=== PATIENT | male | born 1935 | race Caucasian/White ===

== ENCOUNTER 2022-05-01 10:25 | Outpatient (CLI) | payer MEDICARE | END 2022-05-01 10:26 | disposition home or self-care (01) | LOC: BICCT 10:25 | PROVIDERS: ATTEND Internal Medicine Pulmonary Disease | DX: J44.9 Chronic obstructive pulmonary disease, unspecified (principal); J92.9 Pleural plaque without asbestos; J98.4 Other disorders of lung; I34.81 Nonrheumatic mitral (valve) annulus calcification; K44.9 Diaphragmatic hernia without obstruction or gangrene; K80.20 Calculus of gallbladder without cholecystitis without obstruction; I51.7 Cardiomegaly | CPT/HCPCS: 71250 ==

== ENCOUNTER 2022-08-15 09:16 | Outpatient (CLI) | payer MEDICARE | END 2022-08-15 09:17 | disposition home or self-care (01) | LOC: RAD 09:16 | PROVIDERS: ATTEND Internal Medicine Critical Care Medicine | DX: R06.00 Dyspnea, unspecified (principal); R91.8 Other nonspecific abnormal finding of lung field | CPT/HCPCS: 71046 ==

== ENCOUNTER 2022-09-26 10:02 | Outpatient (CLI) | payer MEDICARE ==
[2022-09-26 11:12] LABS: #Eosinphils 0.3 10x3/uL (0.0-0.5); #Monocytes 0.6 10x3/uL (0.0-1.1); #Neutrophils 4.2 10x3/uL (1.5-8.4); %Basophils 0.6 % (0.0-2.0); %Eosinophils 4.5 % (0.0-6.0); %Lymphocytes 27.4 % (18.0-47.0); %Monocytes 8.7 % (0.0-10.0); %Neutrophils 58.5 % (40.0-75.0); Hemoglobin 13.7 g/dL (13.5-17.5); Mean Corpuscular HGB CONC 32.9 g/dL (32.0-36.0); Mean Corpuscular Hemoglobin 32.2 pg (27.0-33.0); Mean Corpuscular Volume 97.9 fl (81.2-95.1); Mean Platelet Volume 10.1 fl (7.4-10.4); Platelet Count 165 10x3/uL (150-450); RBC Distribution Width 12.4 % (11.5-14.5); Red Blood Cell (RBC) Count 4.25 10x6/uL (4.32-5.72); White Blood Cell (WBC) Count 7.2 10x3/uL (3.5-10.5)
[2022-09-26 11:22] LABS: Prothrombin Time 10.9 sec (9.5-12.1)
[2022-09-26 11:35] LABS: Anion Gap 14 mmol/L (10-20); BUN (Urea Nitrogen) 34 mg/dL (8.4-25.7); Calc. Creatinine Clearance 0 mL/min (70-130); Calcium 9.6 mg/dL (7.8-10.44); Carbon Dioxide 28 mmol/L (23-31); Chloride 103 mmol/L (98-107); Estimated GFR 54; Glucose 259 mg/dL (83-110); Potassium 5.2 mmol/L (3.5-5.1); Sodium 140 mmol/L (136-145)
== END 2022-09-26 10:03 | disposition home or self-care (01) ==
LOC: LABBT 10:02
PROVIDERS: ATTEND Orthopaedic Surgery
DX: Z01.812 Encounter for preprocedural laboratory examination (principal); M17.11 Unilateral primary osteoarthritis, right knee
CPT/HCPCS: 80048; 85025; 85610; 87081

== ENCOUNTER 2023-01-01 07:51 | Outpatient (CLI) | payer MEDICARE | END 2023-01-01 07:52 | disposition home or self-care (01) | LOC: BICCT 07:51 | PROVIDERS: ATTEND Internal Medicine Critical Care Medicine | DX: J92.9 Pleural plaque without asbestos (principal) | CPT/HCPCS: 71250 ==

== ENCOUNTER 2023-02-27 11:42 | Outpatient (CLI) | payer MEDICARE | END 2023-02-27 11:43 | disposition home or self-care (01) | LOC: BICMRI 11:42 | PROVIDERS: ATTEND Orthopaedic Surgery | DX: M75.101 Unspecified rotator cuff tear or rupture of right shoulder, not specified as traumatic (principal); M75.111 Incomplete rotator cuff tear or rupture of right shoulder, not specified as traumatic; M19.011 Primary osteoarthritis, right shoulder ==

== ENCOUNTER 2024-01-14 07:42 | Outpatient (CLI) | payer MEDICARE | END 2024-01-14 07:43 | disposition home or self-care (01) | LOC: BICCT 07:42 | PROVIDERS: ATTEND Internal Medicine Critical Care Medicine | DX: J92.0 Pleural plaque with presence of asbestos (principal) | CPT/HCPCS: 71250 ==